=== PATIENT | male | born 1975 | race Caucasian/White ===

== ENCOUNTER 2017-06-22 09:21 | Emergency (ER) | payer OTHER ==
[~2017-06-22] VITALS: Ht 170.2 cm; Wt 99.4 kg
[~2017-06-22 09:21] MED LIST: ABILIFY10 MG PO; AMOXICILLIN500 MG PO; ATARAX,VISTARIL25 MG PO; AUGMENTIN875 MG PO; BUSPAR30 MG PO; CLEOCIN300 MG PO; CONCERTA54 MG PO; EFFEXOR75 MG PO; ELAVIL25 MG PO; FLOMAX0.4 MG PO; METHADONE 22 MG/1 ML PO; METHADONE10 MG PO; NAPROSYN500 MG PO; NEURONTIN100 MG PO; NOHOMEMEDS; PEN-VEE K,VEET500 MG PO; PERIDEX1 ML MM; ULTRAM50 MG PO
[2017-06-22] MEDS ORDERED: CLEOCIN300 MG PO (11:49)
[2017-06-22] MEDS ORDERED: NAPROSYN500 MG PO (11:49)
[2017-06-22 11:54] VITALS: BP 122/83
== END 2017-06-22 11:54 | disposition home or self-care (01) ==
LOC: EME 09:21
PROC: 0C95XZZ Drainage of Upper Gingiva, External Approach (ICD-10-PCS; principal; 2017-06-22)
DX: L03.211 Cellulitis of face (principal); K03.81 Cracked tooth; K08.89 Other specified disorders of teeth and supporting structures; F17.210 Nicotine dependence, cigarettes, uncomplicated; F41.9 Anxiety disorder, unspecified
CPT/HCPCS: 99281; 99283

== ENCOUNTER 2017-12-09 15:21 | Emergency (ER) | payer OTHER ==
[~2017-12-09] VITALS: Ht 170.2 cm; Wt 86.4 kg
[2017-12-09] MEDS ORDERED: CLEOCIN300 MG PO (17:29)
[2017-12-09 17:55] VITALS: BP 128/84
== END 2017-12-09 17:56 | disposition home or self-care (01) ==
LOC: EME 15:21
PROC: 0W933ZZ Drainage of Oral Cavity and Throat, Percutaneous Approach (ICD-10-PCS; principal; 2017-12-09)
DX: K04.7 Periapical abscess without sinus (principal); F17.200 Nicotine dependence, unspecified, uncomplicated; Z81.8 Family history of other mental and behavioral disorders; Z88.6 Allergy status to analgesic agent
CPT/HCPCS: 99281; 99284